=== PATIENT | female | born 1990 | race Caucasian/White ===

== ENCOUNTER 2016-12-08 16:22 | Emergency (ER) | payer OTHER ==
[~2016-12-08] VITALS: Ht 152.4 cm; Wt 81.8 kg
[~2016-12-08 16:22] MED LIST: CARAFATE 1GM1 G PO; CEPHALEXIN500 M1 PO; COUGH MED; DOXYCYCLINE 10100 MG PO; PREDNISONE20 MG PO; PROVENTIL0.09 MG/A1 IH; ZANTAC 7575 MG PO; ZITHROMAX 250M250 MG PO; ZITHROMAX Z PA250 MG PO; ZOFRAN 4MG T4 MG/TAB PO; ZOFRAN ODT4 MG PO
[2016-12-08 16:27] VITALS: TEMP 99.8
[2016-12-08 18:01] LABS: BASO # 0.1 (0.0-0.2); BASO % 0.8 % (0.0-2.0); EOS # 0.2 (0.0-0.7); EOS % 2.2 % (0-4.0); GRAN # 6.1 (1.4-6.5); GRAN % 71.9 % (42.2-75.2); HEMATOCRIT 40.1 % (37.0-47.0); HEMOGLOBIN 14.3 g/dl (12.5-16.0); LYMPH # 1.3 (1.2-3.4); LYMPH % 15.2 % (20.0-51.0); MEAN CELL VOLUME 90 fl (80.0-100.0); MEAN CORPUSCULAR HEMOGLOBIN 32 pg (27.0-31.0); MEAN CORPUSCULAR HGB CONC 36 g/dl (33.0-37.0); MEAN PLATELET VOLUME 9.9 fl (7.4-10.4); MONO # 0.8 (0.1-0.6); MONO % 9.4 % (1.7-9.3); PLATELET COUNT 283 K/mm3 (130-400); RED BLOOD COUNT 4.47 M/mm3 (4.10-5.30); REDCELL DISTRIBUTION WIDTH-CV 12.5 % (11.5-14.5); WHITE BLOOD COUNT 8.5 K/mm3 (4.8-10.8)
[2016-12-08 18:23] LABS: INFLUENZA B NEGATIVE
[2016-12-08 18:45] LABS: ADJUSTED CALCIUM 9.1 mg/dL (8.4-10.2); ALBUMIN 4.3 gm/dL (3.5-5.0); BILIRUBIN,TOTAL 0.7 mg/dL (0.0-1.0); C-REACTIVE PROTEIN 1.6 mg/dL (0.0-0.9); CALCIUM 9.3 mg/dL (8.4-10.2); CREATININE, serum 0.78 mg/dL (0.52-1.25); POTASSIUM 4.1 mmol/L (3.4-5.0); TOTAL PROTEIN 7.9 gm/dL (6.4-8.2)
[2016-12-08] MEDS ORDERED: PHENERGAN W/CO120 M1 PO (20:20)
[2016-12-08] MEDS ORDERED: DOXYCYCLINE 10100 MG PO (20:20)
[2016-12-08 21:15] VITALS: BP 119/72; PULSE 93
[2016-12-09] MEDS ORDERED: VENTOLIN0.09 MG IH (20:45)
== END 2016-12-08 21:15 | disposition home or self-care (01) ==
LOC: COL.ER 16:22
PROVIDERS: Emergency Medicine
DX: J40 Bronchitis, not specified as acute or chronic (principal); R51 Headache; F17.210 Nicotine dependence, cigarettes, uncomplicated
CPT/HCPCS: J1100; J1170; J1200; J2550; J3010; J7030

== ENCOUNTER 2016-12-09 20:39 | Emergency (ER) | payer OTHER ==
[~2016-12-09] VITALS: Ht 152.4 cm; Wt 81.8 kg
[~2016-12-09 20:39] MED LIST changes: +PHENERGAN W/CO120 M1 PO
[2016-12-09 20:41] VITALS: BP 118/66; TEMP 102.5
[2016-12-09] MEDS ORDERED: VENTOLIN0.09 MG IH (20:45)
[2016-12-09 21:49] VITALS: PULSE 121
== END 2016-12-09 22:02 | disposition home or self-care (01) ==
LOC: COL.ER 20:39
DX: J11.1 Influenza due to unidentified influenza virus with other respiratory manifestations (principal); F17.210 Nicotine dependence, cigarettes, uncomplicated

== ENCOUNTER 2016-12-12 09:01 | Emergency (ER) | payer OTHER ==
[~2016-12-12] VITALS: Ht 152.4 cm; Wt 81.7 kg
[~2016-12-12 09:01] MED LIST changes: +VENTOLIN0.09 MG IH
[2016-12-12 10:31] LABS: BASO % 0.4 % (0.0-2.0); EOS # 0.2 (0.0-0.7); EOS % 2.8 % (0-4.0); GRAN # 2.7 (1.4-6.5); GRAN % 50.3 % (42.2-75.2); HEMATOCRIT 39.2 % (37.0-47.0); HEMOGLOBIN 13.6 g/dl (12.5-16.0); LYMPH # 2.1 (1.2-3.4); LYMPH % 39.1 % (20.0-51.0); MEAN CELL VOLUME 92 fl (80.0-100.0); MEAN CORPUSCULAR HEMOGLOBIN 32 pg (27.0-31.0); MEAN CORPUSCULAR HGB CONC 35 g/dl (33.0-37.0); MEAN PLATELET VOLUME 9.8 fl (7.4-10.4); MONO # 0.4 (0.1-0.6); PLATELET COUNT 224 K/mm3 (130-400); RED BLOOD COUNT 4.27 M/mm3 (4.10-5.30); REDCELL DISTRIBUTION WIDTH-CV 12.8 % (11.5-14.5); WHITE BLOOD COUNT 5.3 K/mm3 (4.8-10.8)
[2016-12-12 10:34] VITALS: BP 118/71; TEMP 98.6
[2016-12-12 10:43] LABS: ADJUSTED CALCIUM 8.8 mg/dL (8.4-10.2); BILIRUBIN,TOTAL 0.5 mg/dL (0.0-1.0); CALCIUM 8.8 mg/dL (8.4-10.2); CREATININE, serum 0.79 mg/dL (0.52-1.25); POTASSIUM 3.4 mmol/L (3.4-5.0); TOTAL PROTEIN 7.3 gm/dL (6.4-8.2)
[2016-12-12] MEDS ORDERED: NORCO 325 MG-51 TAB PO (12:02)
[2016-12-12 12:08] VITALS: PULSE 90
== END 2016-12-12 12:15 | disposition home or self-care (01) ==
LOC: COL.ER 09:01
PROVIDERS: Physician Assistant
DX: B34.9 Viral infection, unspecified (principal); R51 Headache; J45.909 Unspecified asthma, uncomplicated; F17.210 Nicotine dependence, cigarettes, uncomplicated
CPT/HCPCS: J1170; J1885; J2405; J7030

== ENCOUNTER 2017-02-05 17:47 | Emergency (ER) | payer OTHER ==
[~2017-02-05] VITALS: Ht 152.4 cm; Wt 81.8 kg
[~2017-02-05 17:47] MED LIST changes: +NORCO 325 MG-51 TAB PO
[2017-02-05 17:48] VITALS: TEMP 98.6
[2017-02-05] MEDS ORDERED: ZANTAC 150150 MG (17:52)
[2017-02-05] MEDS ORDERED: ATARAX 25MG25 MG/TAB PO (18:46)
[2017-02-05] MEDS ORDERED: PREDNISONE20 MG PO (18:46)
[2017-02-05 19:04] VITALS: BP 128/75; PULSE 97
== END 2017-02-05 19:05 | disposition home or self-care (01) ==
LOC: COL.ER 17:47
DX: L23.9 Allergic contact dermatitis, unspecified cause (principal)
CPT/HCPCS: J7512

== ENCOUNTER 2017-03-11 14:53 | Emergency (ER) | payer OTHER ==
[~2017-03-11] VITALS: Ht 152.4 cm; Wt 84.1 kg
[~2017-03-11 14:53] MED LIST changes: +ATARAX 25MG25 MG/TAB PO; +ZANTAC 150150 MG
[2017-03-11 15:01] VITALS: BP 130/73; TEMP 98.6
[2017-03-11 16:30] VITALS: PULSE 91
== END 2017-03-11 16:30 | disposition home or self-care (01) ==
LOC: COL.ER 14:53
DX: M70.62 Trochanteric bursitis, left hip (principal); F17.210 Nicotine dependence, cigarettes, uncomplicated
CPT/HCPCS: J1885

== ENCOUNTER 2017-03-19 20:56 | Emergency (ER) | payer OTHER ==
[~2017-03-19] VITALS: Ht 152.4 cm; Wt 81.8 kg
[2017-03-19 21:08] VITALS: BP 143/87; TEMP 98.4
[2017-03-19] MEDS ORDERED: DOXYCYCLINE 10100 MG PO (23:12)
[2017-03-19 23:47] VITALS: PULSE 92
== END 2017-03-19 23:41 | disposition home or self-care (01) ==
LOC: COL.ER 20:56
DX: L03.031 Cellulitis of right toe (principal)

== ENCOUNTER 2017-05-14 21:25 | Emergency (ER) | payer OTHER ==
[~2017-05-14] VITALS: Ht 152.4 cm; Wt 81.8 kg
[2017-05-14 21:28] VITALS: TEMP 98
[2017-05-14] MEDS ORDERED: ZANTAC 7575 MG PO (21:30)
[2017-05-14 22:01] LABS: BASO # 0.1 (0.0-0.2); BASO % 0.5 % (0.0-2.0); EOS # 0.3 (0.0-0.7); EOS % 2.1 % (0-4.0); GRAN # 10.4 (1.4-6.5); GRAN % 69.6 % (42.2-75.2); HEMATOCRIT 38.2 % (37.0-47.0); HEMOGLOBIN 13.5 g/dl (12.5-16.0); LYMPH # 3.2 (1.2-3.4); LYMPH % 21.7 % (20.0-51.0); MEAN CELL VOLUME 89 fl (80.0-100.0); MEAN CORPUSCULAR HEMOGLOBIN 32 pg (27.0-31.0); MEAN CORPUSCULAR HGB CONC 35 g/dl (33.0-37.0); MEAN PLATELET VOLUME 9.6 fl (7.4-10.4); MONO # 0.8 (0.1-0.6); MONO % 5.3 % (1.7-9.3); PLATELET COUNT 284 K/mm3 (130-400); RED BLOOD COUNT 4.28 M/mm3 (4.10-5.30); REDCELL DISTRIBUTION WIDTH-CV 12.6 % (11.5-14.5)
[2017-05-14 22:06] LABS: PH 5 (5-8); SQUAMOUS EPITHELIAL 0-2 /hpf; URINE APPEARANCE Clear; URINE BACTERIA None Seen /hpf; URINE BILIRUBIN Negative (NEGATIVE); URINE BLOOD 1+ (NEGATIVE); URINE COLOR Yellow; URINE GLUCOSE Negative (NEGATIVE); URINE KETONE Negative (NEGATIVE); URINE RBC None Seen /hpf; URINE UROBILINOGEN Negative (NEGATIVE); URINE WBC 0-2 /hpf
[2017-05-14 22:14] LABS: ADJUSTED CALCIUM 8.9 mg/dL (8.4-10.2); ALBUMIN 4.1 gm/dL (3.5-5.0); BILIRUBIN,TOTAL 0.6 mg/dL (0.0-1.0); CREATININE, serum 0.72 mg/dL (0.52-1.25); POTASSIUM 3.7 mmol/L (3.4-5.0); TOTAL PROTEIN 7.7 gm/dL (6.4-8.2)
[2017-05-15] MEDS ORDERED: PHENERGAN 25 TA25 MG PO (01:22)
[2017-05-15] MEDS ORDERED: NORCO 325 MG-51 TAB PO (01:22)
[2017-05-15 01:29] VITALS: BP 115/70; PULSE 82
[2017-05-15] MEDS ORDERED: PROAIR HFA0.09 MG/AC (19:45)
[2017-05-15] MEDS ORDERED: EXCEDRIN TENSIO1 TAB PO (21:24)
== END 2017-05-15 01:33 | disposition home or self-care (01) ==
LOC: COL.ER 21:25
PROVIDERS: Emergency Medicine
DX: R10.11 Right upper quadrant pain (principal)
CPT/HCPCS: J1170; J1885; J7030; Q9967

== ENCOUNTER 2017-05-15 16:00 | Inpatient (IN) | payer OTHER ==
[~2017-05-15] VITALS: Ht 152.4 cm; Wt 88.6 kg
[~2017-05-15 16:00] MED LIST changes: +PHENERGAN 25 TA25 MG PO
[2017-05-15 16:57] LABS: BASO # 0.1 (0.0-0.2); BASO % 0.8 % (0.0-2.0); EOS # 0.3 (0.0-0.7); EOS % 2.8 % (0-4.0); GRAN # 6.3 (1.4-6.5); GRAN % 61.2 % (42.2-75.2); HEMATOCRIT 37.9 % (37.0-47.0); HEMOGLOBIN 13.6 g/dl (12.5-16.0); LYMPH # 2.9 (1.2-3.4); LYMPH % 28.2 % (20.0-51.0); MEAN CELL VOLUME 90 fl (80.0-100.0); MEAN CORPUSCULAR HEMOGLOBIN 32 pg (27.0-31.0); MEAN CORPUSCULAR HGB CONC 36 g/dl (33.0-37.0); MEAN PLATELET VOLUME 9.8 fl (7.4-10.4); MONO # 0.6 (0.1-0.6); MONO % 6.1 % (1.7-9.3); PLATELET COUNT 269 K/mm3 (130-400); RED BLOOD COUNT 4.21 M/mm3 (4.10-5.30); WHITE BLOOD COUNT 10.3 K/mm3 (4.8-10.8)
[2017-05-15 17:16] LABS: ADJUSTED CALCIUM 8.6 mg/dL (8.4-10.2); ALBUMIN 3.9 gm/dL (3.5-5.0); BILIRUBIN,TOTAL 0.7 mg/dL (0.0-1.0); C-REACTIVE PROTEIN 0.9 mg/dL (0.0-0.9); CALCIUM 8.5 mg/dL (8.4-10.2); CREATININE, serum 0.72 mg/dL (0.52-1.25); POTASSIUM 3.7 mmol/L (3.4-5.0); TOTAL PROTEIN 7.2 gm/dL (6.4-8.2)
[2017-05-15 18:59] VITALS: BP 120/77; PULSE 73; TEMP 97.7
[2017-05-15] MEDS ORDERED: PROAIR HFA0.09 MG/AC (19:45)
[2017-05-15 19:56] VITALS: BP 103/65; PULSE 75; TEMP 98.3
[2017-05-15] MEDS ORDERED: EXCEDRIN TENSIO1 TAB PO (21:24)
[2017-05-15 23:02] VITALS: BP 102/52; PULSE 68; TEMP 98.5
[2017-05-16 03:06] VITALS: BP 97/56; PULSE 81; TEMP 98.7
[2017-05-16 08:26] VITALS: BP 111/67; PULSE 86; TEMP 98.3
[2017-05-16 11:57] VITALS: BP 128/79; PULSE 94; TEMP 98.3
[2017-05-16 15:10] VITALS: BP 114/71; PULSE 84; TEMP 98.8
[2017-05-16 20:00] VITALS: BP 102/56; PULSE 66; TEMP 98.3
[2017-05-17 04:00] VITALS: BP 115/68; PULSE 78; TEMP 98.1
[2017-05-17 08:13] VITALS: BP 123/77; PULSE 77; TEMP 98.1
[2017-05-17 12:00] VITALS: BP 131/78; PULSE 77; TEMP 97.9
[2017-05-17 15:56] VITALS: BP 135/74; PULSE 72; TEMP 98.3
[2017-05-17 19:44] VITALS: BP 121/61; BP 122/47; PULSE 68; PULSE 93; TEMP 98.6
[2017-05-18 00:50] VITALS: BP 125/57; PULSE 73; TEMP 98.5
[2017-05-18 03:04] VITALS: BP 126/71; PULSE 50; TEMP 98.4
[2017-05-18 08:42] VITALS: BP 113/77; PULSE 70; TEMP 97.5
[2017-05-18 09:51] LABS: BASO # 0.1 (0.0-0.2); BASO % 0.6 % (0.0-2.0); EOS # 0.2 (0.0-0.7); EOS % 2.9 % (0-4.0); GRAN % 61.7 % (42.2-75.2); HEMATOCRIT 37.9 % (37.0-47.0); HEMOGLOBIN 13.4 g/dl (12.5-16.0); LYMPH # 2.3 (1.2-3.4); LYMPH % 28.5 % (20.0-51.0); MEAN CELL VOLUME 90 fl (80.0-100.0); MEAN CORPUSCULAR HEMOGLOBIN 32 pg (27.0-31.0); MEAN CORPUSCULAR HGB CONC 35 g/dl (33.0-37.0); MEAN PLATELET VOLUME 9.8 fl (7.4-10.4); MONO # 0.4 (0.1-0.6); MONO % 5.2 % (1.7-9.3); PLATELET COUNT 277 K/mm3 (130-400); RED BLOOD COUNT 4.22 M/mm3 (4.10-5.30); WHITE BLOOD COUNT 8.2 K/mm3 (4.8-10.8)
[2017-05-18 10:05] LABS: CREATININE, serum 0.74 mg/dL (0.52-1.25); POTASSIUM 3.5 mmol/L (3.4-5.0)
[2017-05-18 12:28] VITALS: BP 116/65; PULSE 66; TEMP 98.1
[2017-05-18 16:22] VITALS: BP 100/62; PULSE 67; TEMP 97.9
[2017-05-18 19:59] VITALS: BP 95/57; PULSE 66; TEMP 98.5
[2017-05-19 00:45] VITALS: BP 116/64; PULSE 64; TEMP 98.3
[2017-05-19 03:36] VITALS: BP 120/68; PULSE 72; TEMP 98.3
[2017-05-19 07:58] VITALS: BP 114/75; PULSE 75; TEMP 98.7
[2017-05-19 13:03] VITALS: BP 104/59; PULSE 80; TEMP 97.7
[2017-05-19 15:19] VITALS: BP 100/52; PULSE 61; TEMP 98.5
[2017-05-19] MEDS ORDERED: NORCO 325 MG-7.1 TAB PO (17:36)
[2017-05-19] MEDS ORDERED: PRIL40 PO (17:37)
[2017-05-19] MEDS ORDERED: CARAFATE S1 GM/10 ML PO (17:37)
== END 2017-05-19 18:25 | disposition home or self-care (01) | DRG 357 ==
LOC: COL.ER 16:00 → MEDICAL 18:19
PROVIDERS: Emergency Medicine; Physician Assistant; Surgery
PROC: 0DB78ZX Excision of Stomach, Pylorus, Via Natural or Artificial Opening Endoscopic, Diagnostic (ICD-10-PCS; 2017-05-15)
PROC: BF131ZZ Fluoroscopy of Gallbladder and Bile Ducts using Low Osmolar Contrast (ICD-10-PCS; 2017-05-19)
PROC: 0FT44ZZ Resection of Gallbladder, Percutaneous Endoscopic Approach (ICD-10-PCS; principal; 2017-05-19 11:00)
DX: K25.9 Gastric ulcer, unspecified as acute or chronic, without hemorrhage or perforation (principal); K80.10 Calculus of gallbladder with chronic cholecystitis without obstruction; J20.9 Acute bronchitis, unspecified; T39.1X5A Adverse effect of 4-Aminophenol derivatives, initial encounter; F17.210 Nicotine dependence, cigarettes, uncomplicated
CPT/HCPCS: 99223-AI; 99232-AI; 99233-AI; 99239; A9537; C9113; G0378; J1100; J1170; J1885; J2060; J2250; J2405; J2550; J2704; J3010; J7030; J7120; Q9967

== ENCOUNTER 2017-09-02 20:11 | Emergency (ER) | payer OTHER ==
[~2017-09-02] VITALS: Ht 152.4 cm; Wt 80.0 kg
[~2017-09-02 20:11] MED LIST changes: +CARAFATE S1 GM/10 ML PO; +EXCEDRIN TENSIO1 TAB PO; +NORCO 325 MG-7.1 TAB PO; +PRIL40 PO; +PROAIR HFA0.09 MG/AC
[2017-09-02 20:14] VITALS: TEMP 98.5
[2017-09-02] MEDS ORDERED: CRUTCHES MC (21:19)
[2017-09-02 21:30] VITALS: BP 129/77; PULSE 78
== END 2017-09-02 21:30 | disposition home or self-care (01) ==
LOC: COL.ER 20:11
DX: S80.12XA Contusion of left lower leg, initial encounter (principal); F17.210 Nicotine dependence, cigarettes, uncomplicated; V80.010A Animal-rider injured by fall from or being thrown from horse in noncollision accident, initial encounter
CPT/HCPCS: J1885

== ENCOUNTER 2017-12-18 13:16 | Emergency (ER) | payer SELFPAY ==
[~2017-12-18] VITALS: Ht 152.4 cm; Wt 75.0 kg
[~2017-12-18 13:16] MED LIST changes: +CRUTCHES MC
[2017-12-18 13:37] VITALS: BP 118/69; TEMP 98.9
[2017-12-18 16:22] LABS: COLLECTION METHOD CLEAN CATCH
[2017-12-18 16:29] LABS: MUCOUS Present /lpf; PH 5 (5-8); SQUAMOUS EPITHELIAL 0-2 /hpf; URINE APPEARANCE Clear; URINE BACTERIA Rare /hpf; URINE BILIRUBIN Negative (NEGATIVE); URINE BLOOD Negative (NEGATIVE); URINE COLOR Yellow; URINE GLUCOSE Negative (NEGATIVE); URINE KETONE Negative (NEGATIVE); URINE LEUKOCYTE ESTERASE Negative (NEGATIVE); URINE NITRATE Negative (NEGATIVE); URINE PROTEIN(semi-quant) Negative (NEGATIVE); URINE RBC 0-2 /hpf; URINE UROBILINOGEN Negative (NEGATIVE)
[2017-12-18 20:30] VITALS: PULSE 76
== END 2017-12-18 20:31 | disposition home or self-care (01) ==
LOC: COL.ER 13:16
PROVIDERS: Nurse Practitioner
DX: O26.891 Other specified pregnancy related conditions, first trimester (principal); R10.32 Left lower quadrant pain; O99.331 Smoking (tobacco) complicating pregnancy, first trimester; F17.210 Nicotine dependence, cigarettes, uncomplicated; Z3A.01 Less than 8 weeks gestation of pregnancy; Z90.49 Acquired absence of other specified parts of digestive tract

== ENCOUNTER 2017-12-23 21:02 | Emergency (ER) | payer SELFPAY ==
[~2017-12-23] VITALS: Ht 152.4 cm; Wt 76.4 kg
[2017-12-23 21:07] VITALS: BP 118/65; PULSE 90; TEMP 98.9
[2017-12-24 00:05] LABS: BASO # 0.1 (0.0-0.2); BASO % 0.5 % (0.0-2.0); EOS # 0.3 (0.0-0.7); EOS % 1.7 % (0-4.0); GRAN # 11.3 (1.4-6.5); GRAN % 67.3 % (42.2-75.2); HEMATOCRIT 39.1 % (37.0-47.0); HEMOGLOBIN 13.5 g/dl (12.5-16.0); LYMPH # 4.1 (1.2-3.4); LYMPH % 24.7 % (20.0-51.0); MEAN CELL VOLUME 92 fl (80.0-100.0); MEAN CORPUSCULAR HEMOGLOBIN 32 pg (27.0-31.0); MEAN CORPUSCULAR HGB CONC 35 g/dl (33.0-37.0); MEAN PLATELET VOLUME 9.4 fl (7.4-10.4); MONO # 0.8 (0.1-0.6); MONO % 4.9 % (1.7-9.3); PLATELET COUNT 279 K/mm3 (130-400); RED BLOOD COUNT 4.25 M/mm3 (4.10-5.30); REDCELL DISTRIBUTION WIDTH-CV 12.3 % (11.5-14.5)
[2017-12-24 00:50] LABS: COLLECTION METHOD CLEAN CATCH
[2017-12-24 00:57] LABS: PH 7 (5-8); SQUAMOUS EPITHELIAL None Seen /hpf; URINE APPEARANCE Clear; URINE BACTERIA None Seen /hpf; URINE BILIRUBIN Negative (NEGATIVE); URINE BLOOD Negative (NEGATIVE); URINE COLOR Straw; URINE GLUCOSE Negative (NEGATIVE); URINE KETONE Negative (NEGATIVE); URINE LEUKOCYTE ESTERASE Negative (NEGATIVE); URINE NITRATE Negative (NEGATIVE); URINE PROTEIN(semi-quant) Negative (NEGATIVE); URINE RBC None Seen /hpf; URINE UROBILINOGEN Negative (NEGATIVE)
== END 2017-12-24 03:25 | disposition home or self-care (01) ==
LOC: COL.ER 21:02
PROVIDERS: Emergency Medicine
DX: O26.891 Other specified pregnancy related conditions, first trimester (principal); R10.32 Left lower quadrant pain; Z3A.00 Weeks of gestation of pregnancy not specified

== ENCOUNTER 2018-02-07 18:14 | Emergency (ER) | payer MEDICAID ==
[~2018-02-07] VITALS: Ht 152.4 cm; Wt 75.9 kg
[2018-02-07 18:15] VITALS: BP 121/65; PULSE 89; TEMP 98.8
[2018-02-07 19:34] LABS: COLLECTION METHOD CLEAN CATCH
[2018-02-07 19:40] LABS: PH 6 (5-8); SQUAMOUS EPITHELIAL 0-2 /hpf; URINE APPEARANCE Clear; URINE BACTERIA None Seen /hpf; URINE BILIRUBIN Negative (NEGATIVE); URINE BLOOD Negative (NEGATIVE); URINE COLOR Straw; URINE GLUCOSE Negative (NEGATIVE); URINE KETONE Negative (NEGATIVE); URINE LEUKOCYTE ESTERASE Negative (NEGATIVE); URINE NITRATE Negative (NEGATIVE); URINE PROTEIN(semi-quant) Negative (NEGATIVE); URINE RBC 0-2 /hpf; URINE UROBILINOGEN Negative (NEGATIVE)
== END 2018-02-07 20:57 | disposition home or self-care (01) ==
LOC: COL.ER 18:14
PROVIDERS: Physician Assistant
DX: O26.891 Other specified pregnancy related conditions, first trimester (principal); R10.30 Lower abdominal pain, unspecified; O99.331 Smoking (tobacco) complicating pregnancy, first trimester; Z90.49 Acquired absence of other specified parts of digestive tract; Z3A.12 12 weeks gestation of pregnancy

== ENCOUNTER 2018-03-04 17:36 | Emergency (ER) | payer MEDICAID ==
[~2018-03-04] VITALS: Ht 152.4 cm; Wt 74.1 kg
[2018-03-04 18:02] VITALS: BP 119/57; TEMP 98.9
[2018-03-04] MEDS ORDERED: AMOXICILLIN 8751 TAB PO (18:09)
[2018-03-04 18:46] VITALS: PULSE 82
== END 2018-03-04 18:48 | disposition home or self-care (01) ==
LOC: COL.ER 17:36
DX: J02.9 Acute pharyngitis, unspecified (principal); J45.909 Unspecified asthma, uncomplicated; F17.210 Nicotine dependence, cigarettes, uncomplicated

== ENCOUNTER 2019-02-25 19:15 | Emergency (ER) | payer MEDICAID ==
[~2019-02-25] VITALS: Ht 152.4 cm; Wt 80.0 kg
[~2019-02-25 19:15] MED LIST changes: +AMOXICILLIN 8751 TAB PO; +IBU800 M1 PO; +PERCOCET 325 MG1 TA2 PO; +PRENATAL; +PROTONIX20 MG PO
[2019-02-25 19:40] VITALS: TEMP 98.8
[2019-02-25] MEDS ORDERED: ZANTAC 7575 MG PO (21:39)
[2019-02-25] MEDS ORDERED: PREDNISONE20 MG PO (21:40)
[2019-02-25] MEDS ORDERED: PROAIR HFA0.09 MG/AC IH (21:40)
[2019-02-25] MEDS ORDERED: TESSALON P100 MG/CAP PO (21:40)
[2019-02-25] MEDS ORDERED: TUSS PO (22:41)
[2019-02-25] MEDS ORDERED: ZITHROMAX Z PA250 MG PO (22:41)
[2019-02-25 23:03] VITALS: BP 141/69; PULSE 90
[2019-02-25] MEDS ORDERED: NEB MC (23:08)
[2019-02-25] MEDS ORDERED: ALBUTEROL0.83 MG/ML IH (23:08)
== END 2019-02-25 23:07 | disposition home or self-care (01) ==
LOC: COL.ER 19:15
DX: J40 Bronchitis, not specified as acute or chronic (principal); Z79.51 Long term (current) use of inhaled steroids; Z90.49 Acquired absence of other specified parts of digestive tract; Z90.710 Acquired absence of both cervix and uterus

== ENCOUNTER 2019-03-20 10:19 | Emergency (ER) | payer SELFPAY ==
[~2019-03-20] VITALS: Ht 152.4 cm; Wt 80.0 kg
[~2019-03-20 10:19] MED LIST changes: +ALBUTEROL0.83 MG/ML IH; +NEB MC; +PROAIR HFA0.09 MG/AC IH; +TESSALON P100 MG/CAP PO; +TUSS PO
[2019-03-20 10:50] LABS: BASO % 0.4 % (0.0-2.0); EOS # 0.2 (0.0-0.7); EOS % 2.3 % (0-4.0); GRAN # 5.7 (1.4-6.5); GRAN % 71.4 % (42.2-75.2); HEMATOCRIT 39.4 % (37.0-47.0); LYMPH # 1.5 (1.2-3.4); LYMPH % 19.3 % (20.0-51.0); MEAN CELL VOLUME 90 fl (80.0-100.0); MEAN CORPUSCULAR HEMOGLOBIN 32 pg (27.0-31.0); MEAN CORPUSCULAR HGB CONC 36 g/dl (33.0-37.0); MEAN PLATELET VOLUME 9.5 fl (7.4-10.4); MONO # 0.5 (0.1-0.6); MONO % 6.1 % (1.7-9.3); PLATELET COUNT 293 K/mm3 (130-400); RED BLOOD COUNT 4.37 M/mm3 (4.10-5.30); REDCELL DISTRIBUTION WIDTH-CV 12.2 % (11.5-14.5)
[2019-03-20 10:56] LABS: ALBUMIN 3.9 gm/dL (3.5-5.0); BILIRUBIN,TOTAL 0.4 mg/dL (0.0-1.0); CREATININE, serum 0.73 (0.52-1.25); POTASSIUM 3.9 mmol/L (3.4-5.0); TOTAL PROTEIN 7.6 gm/dL (6.4-8.2)
[2019-03-20 11:54] LABS: COLLECTION METHOD CLEAN CATCH
[2019-03-20 12:00] LABS: MUCOUS Present /lpf; PH 5 (5-8); SQUAMOUS EPITHELIAL None Seen /hpf; URINE APPEARANCE Clear; URINE BACTERIA None Seen /hpf; URINE BILIRUBIN Negative (NEGATIVE); URINE BLOOD Negative (NEGATIVE); URINE COLOR Yellow; URINE GLUCOSE Negative (NEGATIVE); URINE KETONE Negative (NEGATIVE); URINE LEUKOCYTE ESTERASE Negative (NEGATIVE); URINE NITRATE Negative (NEGATIVE); URINE PROTEIN(semi-quant) Negative (NEGATIVE); URINE RBC None Seen /hpf; URINE UROBILINOGEN Negative (NEGATIVE); URINE WBC 0-2 /hpf
[2019-03-20] MEDS ORDERED: PROTONIX 40MG T40 MG PO (13:48)
[2019-03-20 14:22] VITALS: BP 107/65; PULSE 103; TEMP 98.9
== END 2019-03-20 14:25 | disposition home or self-care (01) ==
LOC: COL.ER 10:19
PROVIDERS: Nurse Practitioner Primary Care
DX: K25.9 Gastric ulcer, unspecified as acute or chronic, without hemorrhage or perforation (principal); F17.210 Nicotine dependence, cigarettes, uncomplicated; Z90.49 Acquired absence of other specified parts of digestive tract; Z90.710 Acquired absence of both cervix and uterus
CPT/HCPCS: C9113; J2270; J2405; Q9967

== ENCOUNTER 2019-04-05 12:59 | Day surgery (SDC) | payer SELFPAY ==
[~2019-04-05] VITALS: Ht 152.4 cm; Wt 78.0 kg
[~2019-04-05 12:59] MED LIST changes: +PROTONIX 40MG T40 MG PO; +ZANTAC 150MG T150 MG PO
[2019-04-05] MEDS ORDERED: ALBUTEROL0.83 MG/ML IH (13:12)
[2019-04-05 13:42] VITALS: BP 110/81; PULSE 90; TEMP 97.7
[2019-04-05 14:30] VITALS: BP 111/70; PULSE 78; TEMP 98
--- NOTE | 2019-04-05 14:30 | NUR ---
PATIENT ARRIVES VIA CART FROM OR TO BAY 2. STEADY AMBULATION TO CHAIR. VS STARTED. SPRITE [employer] CRACKERS GIVEN REQUESTED.
[2019-04-05 14:45] VITALS: BP 116/72; PULSE 80
[2019-04-05 15:15] VITALS: BP 113/78; PULSE 80; TEMP 98
--- NOTE | 2019-04-05 15:47 | NUR ---
PATIENT AND SPOUSE GIVEN DISCHARGE INSTRUCTIONS, VERBALIZED UNDERSTANDING. DECLINED WHEELCHAIR, AMBULATED WITH NURSE ESCORT TO PERSONAL CAR.
== END 2019-04-05 15:40 | disposition home or self-care (01) ==
LOC: SDCO 12:59
DX: R19.7 Diarrhea, unspecified (principal); R11.2 Nausea with vomiting, unspecified; Z87.11 Personal history of peptic ulcer disease; Z88.8 Allergy status to other drugs, medicaments and biological substances; F32.9 Major depressive disorder, single episode, unspecified; J45.909 Unspecified asthma, uncomplicated; Z83.79 Family history of other diseases of the digestive system; Z90.710 Acquired absence of both cervix and uterus; Z90.49 Acquired absence of other specified parts of digestive tract; F17.210 Nicotine dependence, cigarettes, uncomplicated; K21.9 Gastro-esophageal reflux disease without esophagitis
CPT/HCPCS: J2704; J7120

== ENCOUNTER → 2019-05-14 | Outpatient (CLI) | payer MEDICAID | LOC: COL.RAD 06:41 | DX: R11.2 Nausea with vomiting, unspecified (principal); R19.7 Diarrhea, unspecified; M54.9 Dorsalgia, unspecified; R10.9 Unspecified abdominal pain | CPT/HCPCS: A9541 ==

== ENCOUNTER 2019-05-21 17:20 | Emergency (ER) | payer MEDICAID ==
[~2019-05-21] VITALS: Ht 152.4 cm; Wt 75.9 kg
[2019-05-21 18:09] VITALS: BP 123/76; TEMP 98.6
[2019-05-21 19:03] LABS: BASO # 0.1 (0.0-0.2); BASO % 0.6 % (0.0-2.0); EOS # 0.2 (0.0-0.7); EOS % 2.1 % (0-4.0); GRAN # 6.9 (1.4-6.5); GRAN % 67.3 % (42.2-75.2); HEMOGLOBIN 12.9 g/dl (12.5-16.0); LYMPH # 2.4 (1.2-3.4); LYMPH % 23.8 % (20.0-51.0); MEAN CELL VOLUME 89 fl (80.0-100.0); MEAN CORPUSCULAR HEMOGLOBIN 33 pg (27.0-31.0); MEAN CORPUSCULAR HGB CONC 37 g/dl (33.0-37.0); MEAN PLATELET VOLUME 10.4 fl (7.4-10.4); MONO # 0.6 (0.1-0.6); MONO % 5.8 % (1.7-9.3); PLATELET COUNT 267 K/mm3 (130-400); RED BLOOD COUNT 3.97 M/mm3 (4.10-5.30)
[2019-05-21 19:12] LABS: HEMATOCRIT 35.3 % (37.0-47.0)
[2019-05-21 19:15] LABS: ALBUMIN 3.6 gm/dL (3.5-5.0); BILIRUBIN,TOTAL 0.2 mg/dL (0.0-1.0); CALCIUM 8.9 mg/dL (8.4-10.2); CREATININE, serum 0.63 (0.52-1.25); POTASSIUM 3.4 mmol/L (3.4-5.0); TOTAL PROTEIN 6.9 gm/dL (6.4-8.2)
[2019-05-21 21:17] VITALS: PULSE 67
== END 2019-05-21 21:27 | disposition home or self-care (01) ==
LOC: COL.ER 17:20
PROVIDERS: Emergency Medicine
DX: G43.909 Migraine, unspecified, not intractable, without status migrainosus (principal); Z90.49 Acquired absence of other specified parts of digestive tract; Z90.710 Acquired absence of both cervix and uterus; Z88.6 Allergy status to analgesic agent; Z88.3 Allergy status to other anti-infective agents
CPT/HCPCS: J1200; J1885; J2765; J3010; J7030

== ENCOUNTER 2019-07-16 17:31 | Emergency (ER) | payer MEDICAID ==
[~2019-07-16] VITALS: Ht 152.4 cm; Wt 75.9 kg
[2019-07-16 18:12] VITALS: BP 113/77; TEMP 98.2
[2019-07-16] MEDS ORDERED: PREDNISONE20 MG PO (19:08)
[2019-07-16] MEDS ORDERED: ZITHROMAX Z PA250 MG PO (19:08)
[2019-07-16 20:00] VITALS: PULSE 83
== END 2019-07-16 20:00 | disposition home or self-care (01) ==
LOC: COL.ER 17:31
DX: J40 Bronchitis, not specified as acute or chronic (principal); F17.210 Nicotine dependence, cigarettes, uncomplicated
CPT/HCPCS: J7512

== ENCOUNTER 2020-04-25 15:29 | Emergency (ER) | payer MEDICAID ==
[~2020-04-25] VITALS: Ht 152.4 cm; Wt 81.8 kg
[2020-04-25 17:23] VITALS: BP 136/88; PULSE 81; TEMP 98.4
[2020-04-25] MEDS ORDERED: AMOXICILLIN 8751 TAB PO (17:24)
== END 2020-04-25 18:06 | disposition home or self-care (01) ==
LOC: COL.ER 15:29
PROVIDERS: Emergency Medicine
DX: R51 Headache (principal); R05 Cough; Z20.828 Contact with and (suspected) exposure to other viral communicable diseases
CPT/HCPCS: J1100; J1200; J2765; J7030

== ENCOUNTER 2020-11-02 11:14 | Emergency (ER) | payer MEDICAID ==
[~2020-11-02] VITALS: Ht 152.4 cm; Wt 75.0 kg
[2020-11-02 11:39] LABS: COLLECTION METHOD CLEAN CATCH
[2020-11-02 11:47] LABS: MUCOUS Present /lpf; PH 5 (5-8); SQUAMOUS EPITHELIAL 0-2 /hpf; URINE APPEARANCE Hazy; URINE BACTERIA Rare /hpf; URINE BILIRUBIN Negative (NEGATIVE); URINE BLOOD 1+ (NEGATIVE); URINE COLOR Yellow; URINE GLUCOSE Negative (NEGATIVE); URINE KETONE Negative (NEGATIVE); URINE LEUKOCYTE ESTERASE 2+ (NEGATIVE); URINE NITRATE Negative (NEGATIVE); URINE PROTEIN(semi-quant) Negative (NEGATIVE); URINE UROBILINOGEN Negative (NEGATIVE)
[2020-11-02 12:13] LABS: BASO # 0.1 (0.0-0.2); BASO % 0.6 % (0.0-2.0); EOS # 0.2 (0.0-0.7); EOS % 1.7 % (0-4.0); GRAN # 7.3 (1.4-6.5); GRAN % 64.8 % (42.2-75.2); HEMATOCRIT 42.6 % (37.0-47.0); HEMOGLOBIN 14.9 g/dl (12.5-16.0); LYMPH % 26.9 % (20.0-51.0); MEAN CELL VOLUME 92 fl (80.0-100.0); MEAN CORPUSCULAR HEMOGLOBIN 32 pg (27.0-31.0); MEAN CORPUSCULAR HGB CONC 35 g/dl (33.0-37.0); MEAN PLATELET VOLUME 10.2 fl (7.4-10.4); MONO # 0.5 (0.1-0.6); MONO % 4.8 % (1.7-9.3); PLATELET COUNT 321 K/mm3 (130-400); RED BLOOD COUNT 4.61 M/mm3 (4.10-5.30); REDCELL DISTRIBUTION WIDTH-CV 12.3 % (11.5-14.5)
[2020-11-02] MEDS ORDERED: OMNICEF 300MG300 MG PO (12:20)
[2020-11-02] MEDS ORDERED: ZOFRAN ODT4 MG PO (12:21)
[2020-11-02 12:37] LABS: ALANINE AMINOTRANSFERASE 30 U/L (4-34); ALBUMIN 4.4 gm/dL (3.5-5.0); ALKALINE PHOSPHATASE 55 U/L (50-136); ANION GAP 13 mmol/L (7-16); AST,SGOT 30 U/L (15-37); BILIRUBIN,TOTAL 0.4 mg/dL (0.0-1.0); BLOOD UREA NITROGEN 11 mg/dL (7-17); CALCIUM 9.1 mg/dL (8.4-10.2); CARBON DIOXIDE 21 mmol/L (22-30); CHLORIDE 103 mmol/L (98-107); CREATININE, serum 0.84 (0.52-1.25); GLUCOSE 91 mg/dL (74-106); POTASSIUM 3.9 mmol/L (3.4-5.0); SODIUM 137 mmol/L (137-145); TOTAL PROTEIN 7.6 gm/dL (6.4-8.2)
[2020-11-02 12:49] LABS: C-REACTIVE PROTEIN < 0.5 mg/dL (0.0-0.9)
[2020-11-02 14:02] VITALS: BP 116/73; PULSE 87; TEMP 97.8
== END 2020-11-02 14:03 | disposition home or self-care (01) ==
LOC: COL.ER 11:14
PROVIDERS: Family Medicine; Physician Assistant
DX: N12 Tubulo-interstitial nephritis, not specified as acute or chronic (principal); F17.210 Nicotine dependence, cigarettes, uncomplicated; Z90.49 Acquired absence of other specified parts of digestive tract; Z32.02 Encounter for pregnancy test, result negative; Z88.6 Allergy status to analgesic agent; Z88.8 Allergy status to other drugs, medicaments and biological substances; Z79.2 Long term (current) use of antibiotics
CPT/HCPCS: J0696; J1885; J2550; J7030

== ENCOUNTER 2020-12-15 10:41 | Emergency (ER) | payer MEDICAID ==
[~2020-12-15] VITALS: Ht 152.4 cm; Wt 77.3 kg
[~2020-12-15 10:41] MED LIST changes: +OMNICEF 300MG300 MG PO
[2020-12-15 11:00] VITALS: TEMP 98.2
[2020-12-15] MEDS ORDERED: PREDNISONE20 MG PO (13:01)
[2020-12-15 13:19] VITALS: BP 116/69; PULSE 92
== END 2020-12-15 13:19 | disposition home or self-care (01) ==
LOC: COL.ER 10:41
DX: J06.9 Acute upper respiratory infection, unspecified (principal); J45.909 Unspecified asthma, uncomplicated; F17.210 Nicotine dependence, cigarettes, uncomplicated; Z20.822 Contact with and (suspected) exposure to COVID-19; Z88.8 Allergy status to other drugs, medicaments and biological substances; Z88.6 Allergy status to analgesic agent
CPT/HCPCS: J7512

== ENCOUNTER 2021-03-06 13:46 | Emergency (ER) | payer MEDICAID ==
[~2021-03-06] VITALS: Ht 152.4 cm; Wt 77.3 kg
[2021-03-06 13:54] VITALS: TEMP 98.3
[2021-03-06 14:50] VITALS: BP 119/71; PULSE 88
== END 2021-03-06 14:53 | disposition home or self-care (01) ==
LOC: COL.ER 13:46
DX: G56.22 Lesion of ulnar nerve, left upper limb (principal); Z90.49 Acquired absence of other specified parts of digestive tract; Z90.710 Acquired absence of both cervix and uterus; Z88.6 Allergy status to analgesic agent; Z88.8 Allergy status to other drugs, medicaments and biological substances

== ENCOUNTER 2022-01-31 20:57 | Emergency (ER) | payer MEDICAID ==
[2022-01-31 21:03] VITALS: TEMP 98.5
[2022-01-31] MEDS ORDERED: LYRICA 100MG C100 M1 PO (21:11)
[2022-01-31] MEDS ORDERED: FASTIN30 MG PO (21:11)
[2022-01-31] MEDS ORDERED: CELEBREX 1100 MG/CAP PO (21:12)
[2022-01-31] MEDS ORDERED: TRICOR145 MG PO (21:12)
[2022-01-31] MEDS ORDERED: LYRICA 50MG CAP50 MG PO (21:13)
[2022-01-31] MEDS ORDERED: TOPAMAX 25MG25 M1 PO (21:14)
[2022-01-31] MEDS ORDERED: ROBAXIN 50500 MG/TAB PO (21:14)
[2022-01-31] MEDS ORDERED: PAMELOR 25MG25 MG PO (21:14)
[2022-01-31] MEDS ORDERED: PERCOCET 325 MG1 TAB PO ×2 (21:15)
[2022-01-31] MEDS ORDERED: ALBUTEROL0.83 MG/ML IH (21:16)
[2022-01-31 21:22] LABS: BASO # 0.1 K/mm3 (0.0-0.2); BASO % 0.8 % (0.0-2.0); EOS # 0.3 K/mm3 (0.0-0.7); EOS % 3.2 % (0.0-4.0); GRAN # 5.7 K/mm3 (1.4-6.5); GRAN % 59.9 % (42.2-75.2); HEMATOCRIT 42.2 % (37.0-47.0); HEMOGLOBIN 14.8 g/dl (12.5-16.0); LYMPH # 2.8 K/mm3 (1.2-3.4); LYMPH % 29.6 % (20.0-51.0); MEAN CELL VOLUME 91 fl (80.0-100.0); MEAN CORPUSCULAR HEMOGLOBIN 32 pg (27-31); MEAN CORPUSCULAR HGB CONC 35 g/dl (33.0-37.0); MEAN PLATELET VOLUME 10.1 fl (7.4-10.4); MONO # 0.5 K/mm3 (0.1-0.6); MONO % 5.7 % (1.7-9.3); PLATELET COUNT 286 K/mm3 (130-400); RED BLOOD COUNT 4.64 M/mm3 (4.10-5.30); REDCELL DISTRIBUTION WIDTH-CV 12.6 % (11.5-14.5)
[2022-01-31 22:01] LABS: ALANINE AMINOTRANSFERASE 57 U/L (0-55); ALBUMIN 4.1 gm/dL (3.5-5.0); ALKALINE PHOSPHATASE 38 U/L (40-150); ANION GAP 14 mmol/L (7-16); AST,SGOT 34 U/L (5-34); BILIRUBIN,TOTAL 0.2 mg/dL (0.2-1.2); BLOOD UREA NITROGEN 8 mg/dL (7-19); CARBON DIOXIDE 19 mmol/L (22-29); CHLORIDE 105 mmol/L (98-107); CREATININE, serum 1.01 mg/dL (0.57-1.11); GLUCOSE 100 mg/dL (70-99); SODIUM 138 mmol/L (136-145); TOTAL PROTEIN 7.6 gm/dL (6.2-8.1)
[2022-01-31 22:08] LABS: TROPONIN-I < 0.010 ng/mL (0.00-0.033)
[2022-02-01 01:40] VITALS: BP 112/74; PULSE 82
== END 2022-02-01 01:40 | disposition home or self-care (01) ==
LOC: COL.ER 20:57
PROVIDERS: Emergency Medicine
DX: R07.2 Precordial pain (principal); R79.1 Abnormal coagulation profile
CPT/HCPCS: J2270; J2405; Q9967

== ENCOUNTER 2023-01-31 07:38 | Outpatient (CLI) | payer MEDICAID ==
[~2023-01-31] VITALS: Ht 152.4 cm; Wt 89.1 kg
[~2023-01-31 07:38] MED LIST changes: +CELEBREX 1100 MG/CAP PO; +FASTIN30 MG PO; +LYRICA 100MG C100 M1 PO; +LYRICA 50MG CAP50 MG PO; +PAMELOR 25MG25 MG PO; +PERCOCET 325 MG1 TAB PO; +ROBAXIN 50500 MG/TAB PO; +TOPAMAX 25MG25 M1 PO; +TRICOR145 MG PO
[2023-01-31 08:19] VITALS: BP 125/73; PULSE 80; TEMP 98.5
[2023-01-31] MEDS ORDERED: ASPIRIN 81M81 MG/TA2 PO (08:19)
[2023-01-31] MEDS ORDERED: PROAMATINE 5MG T5 MG PO (10:28)
[2023-01-31 10:45] VITALS: BP 109/66; PULSE 82
[2023-01-31 11:00] VITALS: BP 114/62; PULSE 84
--- NOTE | 2023-01-31 11:21 | NUR ---
Pt discharged at approx 1120. Pt tolerated post-op very well and was free from complaints or concerns at time of discharge. Pt's VS remained within normal limits pre and post operatively. [facility] to [facility] her ride at the front entrance. She tolerated PO fluids during post-op and her dressing remained clean, dry, and intact upon discharge. She left with a prescription from Dr. Vieira for a blood pressure cuff to use at home and all of her [employer] devices that connect to her new loop recorder. pt verbalized understanding of discharge instructions.
== END 2023-01-31 11:20 | disposition home or self-care (01) ==
LOC: COL.CAR 07:38
DX: R55 Syncope and collapse (principal); R42 Dizziness and giddiness; R06.09 Other forms of dyspnea; R07.9 Chest pain, unspecified; E78.1 Pure hyperglyceridemia; I65.23 Occlusion and stenosis of bilateral carotid arteries; E66.01 Morbid (severe) obesity due to excess calories; F17.210 Nicotine dependence, cigarettes, uncomplicated; Z68.39 Body mass index [BMI] 39.0-39.9, adult
CPT/HCPCS: 27886; C1764

== ENCOUNTER 2024-08-05 08:32 | Inpatient (IN) | payer MEDICAID ==
[2024-08-05] VITALS (350 sets, daily range): BP systolic 106–129; BP diastolic 56–63; PULSE 83–90; TEMP 98.3–98.4; O2SAT 80–100
[~2024-08-05] VITALS: Ht 152.4 cm; Wt 95.9 kg
[~2024-08-05 08:32] MED LIST changes: +ASPIRIN 81M81 MG/TA2 PO; +PROAMATINE 5MG T5 MG PO
[2024-08-05] MEDS ORDERED: methylPREDNISolone Sod Succ 125 MG/2 ML VIAL IV ONE (09:15)
[2024-08-05] MEDS ORDERED: Albuterol/Ipratropium 3 MG-0.5 MG/3 ML Neb Soln IH SCH ×4 (09:15→15:00)
[2024-08-05 09:23] LABS: HEMATOCRIT 39.7 % (37.0-47.0); HEMOGLOBIN 13.7 g/dl (12.5-16.0); MEAN CELL VOLUME 93 fl (80.0-100.0); MEAN CORPUSCULAR HEMOGLOBIN 32 pg (27-31); MEAN CORPUSCULAR HGB CONC 35 g/dl (33.0-37.0); MEAN PLATELET VOLUME 9.7 fl (7.4-10.4); PLATELET COUNT 353 K/mm3 (130-400); RED BLOOD COUNT 4.29 M/mm3 (4.10-5.30); REDCELL DISTRIBUTION WIDTH-CV 12.5 % (11.5-14.5)
[2024-08-05 09:37] LABS: ALBUMIN 3.8 g/dL (3.5-5.0); BILIRUBIN,TOTAL 0.3 mg/dL (0.2-1.2); CALCIUM 8.7 mg/dL (8.4-10.2); CREATININE, serum 0.79 mg/dL (0.57-1.11); POTASSIUM 3.7 mEq/L (3.5-4.5); TOTAL PROTEIN 6.9 g/dl (6.2-8.1)
[2024-08-05] MEDS ORDERED: Ondansetron 4 MG/2 ML VIAL IV ONE (09:45)
[2024-08-05 10:16] LABS: LYMPHOCYTE 24 % (20.0-51.0); NEUTROPHILS 72 % (42.0-75.2)
[2024-08-05 10:17] LABS: PLATELET ESTIMATE NORMAL (NORMAL)
[2024-08-05 12:24] LABS: COLLECTION METHOD CLEAN CATCH
[2024-08-05 12:28] LABS: PH 7.5 (5.0-8.5); URINE APPEARANCE TURBID (CLEAR/HAZY); URINE BLOOD NEGATIVE (NEGATIVE); URINE COLOR YELLOW (YELLOW); URINE GLUCOSE NEGATIVE (NEGATIVE); URINE KETONE NEGATIVE (NEGATIVE); URINE NITRATE NEGATIVE (NEGATIVE); URINE PROTEIN(semi-quant) NEGATIVE (NEGATIVE)
[2024-08-05] MEDS ORDERED: *Potassium Replacement Protocol MC SCH (13:00)
[2024-08-05] MEDS ORDERED: LEXAPRO20 MG PO (13:10)
[2024-08-05] MEDS ORDERED: PREDNISONE20 MG PO (13:10)
[2024-08-05] MEDS ORDERED: TOPAMAX 100MG100 M1 PO (13:10)
[2024-08-05] MEDS ORDERED: PROAIR HFA0.09 MG/AC IH (13:10)
[2024-08-05] MEDS ORDERED: DESYREL 50MG50 MG PO (13:10)
[2024-08-05] MEDS ORDERED: CRESTOR40 MG PO (13:10)
[2024-08-05] MEDS ORDERED: MOBIC15 MG PO (13:10)
[2024-08-05] MEDS ORDERED: VITAMIN D31000 IU PO (13:10)
[2024-08-05] MEDS ORDERED: PROAMATINE 5MG T5 MG PO (13:12)
--- NOTE | 2024-08-05 13:25 | NUR ---
PT ON FLOOR VIA STRETCHER FROM ED, AMBUALTED TO ICU BED INDEPENDENTLY. PT PLACED ON AIRVO BY RT, 25L AND 50%. INSPIRATORY AND EXPIRATORY WHEEZING NOTED DURING ASSESSMENT. PT REPORTS SHORTNESS OF BREATH. PT DENIES PAIN. INT TO LEFT HAND PATENT. PT DENIES NEEDS. BED IN LOWEST POSITION, CALL LIGHT IN REACH
[2024-08-05] MEDS ORDERED: VITAMIN D250 MCG PO (14:06)
[2024-08-05] MEDS ORDERED: ALBUTEROL1.25 MG/3 IH (14:07)
[2024-08-05] MEDS ORDERED: EPIPEN 2-PAK1 MG/ML IM (14:08)
[2024-08-05] MEDS ORDERED: XALATAN EYE DROPS OU (14:08)
[2024-08-05] MEDS ORDERED: ASPIRIN 81M81 MG/TA2 PO (14:09)
[2024-08-05] MEDS ORDERED: Doxycycline Hyclate 100 MG in NS 150 ML IV SCH (14:30)
[2024-08-05] MEDS ORDERED: cefTRIAXone 1 G in Water For Injection,Sterile 10 ML IV SCH (14:30)
[2024-08-05] MEDS ORDERED: dexAMETHasone 10 MG/ML VIAL IV SCH (14:30)
[2024-08-05] MEDS ORDERED: Albuterol/Ipratropium 3 MG-0.5 MG/3 ML Neb Soln IH PRN (14:30)
[2024-08-05] MEDS ORDERED: Albuterol 0.042% Neb Soln 1.25 MG/3 ML UD IH SCH (15:00)
--- NOTE | 2024-08-05 15:01 | NUR ---
SW met with patient to complete initial assessment for discharge planning. Patient's niece present in room which patient consented to her remaining. Patient verified that she lives in [place] with her two children ages 14 and 5 years old[address] She sees Dr. Briana Vazquez as her PCP and uses [facility] in [place]. Patient lists her father Tan ([phone]) as her call or contact centre manager who lives in [place]. Patient's father will care for her children while patient is hosptialized. Patient states she has a loop recorder and uses a nebulizer for DME. Patient states she is covered by Medicaid and has applied for disability but has not been approved. Patient states she does not drive due to having seizure disorder. Patient denied having a DPOA but was agreeable to completing one at this time. She named her father Tan Steele as DPOA and her niece Radha Steele ([phone]) as alternate. Original and copies provided to patient and copy placed on chart. Patient will return home at discharge with family to drive her. Discharge plan: Home
[2024-08-05] MEDS ORDERED: Potassium Bicarbonate/Citrate 20 MEQ Effervescent TAB PO SCH (17:00)
--- NOTE | 2024-08-05 18:01 | NUR ---
PT LAYING IN BED UPON ENTERING. PT AMBULATING TO BATHROOM WITH THIS NURSE, DYSPNEA ON EXTERTION NOTED. PT BACK TO BED, O2 SATS WITHIN NORMAL LIMITS. PT ON AIRVO 25L, 50%. PT DENIES NEEDS. BED IN LOWEST POSITION, CALL LIGHT IN REACH.
--- NOTE | 2024-08-05 19:15 | NUR ---
Received reort from JANETH Moreno. Pt is resting in bed with Airvo on at this time. Vitals are stable at this time. Bed is in low position and the call light is within reach. Pt not on any drips and IVF's at this time. Will continue with pt care.
[2024-08-05] MEDS ORDERED: Cholecalciferol (Vit D3) 25 MCG (1,000 Units) TAB PO SCH (21:00)
[2024-08-05] MEDS ORDERED: Atorvastatin 80 MG TAB PO SCH (21:00)
[2024-08-05] MEDS ORDERED: traZODone 100 MG TAB PO SCH (21:00)
[2024-08-06] VITALS (409 sets, daily range): BP systolic 97–130; BP diastolic 51–79; PULSE 49–82; TEMP 97.7–98.4; O2SAT 87–100
[2024-08-06 05:58] LABS: HEMATOCRIT 38.3 % (37.0-47.0); HEMOGLOBIN 12.9 g/dl (12.5-16.0); MEAN CELL VOLUME 93 fl (80.0-100.0); MEAN CORPUSCULAR HEMOGLOBIN 31 pg (27-31); MEAN CORPUSCULAR HGB CONC 34 g/dl (33.0-37.0); MEAN PLATELET VOLUME 9.8 fl (7.4-10.4); PLATELET COUNT 329 K/mm3 (130-400); RED BLOOD COUNT 4.11 M/mm3 (4.10-5.30); REDCELL DISTRIBUTION WIDTH-CV 12.8 % (11.5-14.5)
[2024-08-06 06:13] LABS: ALBUMIN 3.3 g/dL (3.5-5.0); CALCIUM 8.9 mg/dL (8.4-10.2); CREATININE, serum 0.82 mg/dL (0.57-1.11); MAGNESIUM 2.2 mg/dL (1.6-2.6)
[2024-08-06 06:23] LABS: BAND 6 % (0-10); EOSINOPHIL 1 % (0-4); LYMPHOCYTE 11 % (20.0-51.0); METAMYELOCYTE 2 % (0-0); NEUTROPHILS 75 % (42.0-75.2)
[2024-08-06 06:24] LABS: PLATELET ESTIMATE NORMAL (NORMAL)
--- NOTE | 2024-08-06 06:30 | NUR ---
Pt had an uneventful night. Vitals were stable throughout the night. Pt on airvo at this time. No IVF's and drips running at this time. Pt resting in bed with call light within reach. Will give report to day shift nurse.
--- NOTE | 2024-08-06 07:50 | NUR ---
Patient awake and resting in bed; alert and oriented X 4. Denies any concerns at this time. Switched from AIRvo to NC by RT this am. Patient reports tolerating well; 02 WNL. Patient reports feeling improvement with her breathing and can now take deeper breaths, although expiratory wheezes are still audible. Patient currenlty eating breakfast. Call light left within reach.
[2024-08-06] MEDS ORDERED: Influenza Virus Vaccine, Trivalent '24-25 0.5 ML SYRINGE IM SCH (09:00)
[2024-08-06] MEDS ORDERED: Escitalopram 10 MG TAB PO SCH (09:00)
[2024-08-06 09:49] LABS: ALBUMIN 3.4 g/dL (3.5-5.0); BILIRUBIN,DIRECT 0.1 mg/dL (0.0-0.5); BILIRUBIN,TOTAL 0.2 mg/dL (0.2-1.2); TOTAL PROTEIN 6.6 g/dl (6.2-8.1)
[2024-08-06] MEDS ORDERED: Topiramate 100 MG TAB PO SCH (12:04)
[2024-08-06] MEDS ORDERED: Acetaminophen 325 MG TAB PO PRN ×2 (15:30)
[2024-08-06] MEDS ORDERED: predniSONE 20 MG TAB PO SCH (17:00)
--- NOTE | 2024-08-06 18:15 | NUR ---
Transfered to medical floor via wheelchair. Alert and oriented and in no distress. Met receiving RN in room. Call light left within reach.
--- NOTE | 2024-08-06 18:54 | NUR ---
PT TO ROOM 356 PER WHEEL CHAIR WITH REPORT FROM [facility] ICU. PT IS A/O X4 INDEPENDENT IN ROOM. DENIES NEEDS OR PAIN AT THIS TIME.
[2024-08-06] MEDS ORDERED: Budesonide Neb Susp 0.5 MG/2 ML AMP IH SCH (19:00)
[2024-08-06] MEDS ORDERED: Latanoprost 0.005% Ophth Soln 2.5 ML BOTTLE OP SCH (21:00)
[2024-08-07] VITALS: BP 120/73; PULSE 67; TEMP 97.6
[2024-08-07 01:18] VITALS: BP 104/61; PULSE 70; TEMP 97.9
--- NOTE | 2024-08-07 01:22 | NUR ---
PT SITTING UP IN BED EATING. DENIES RESPIRATORY DISTRESS AT THIS TIME.
[2024-08-07 04:06] VITALS: BP 126/80; PULSE 92; TEMP 97.7
[2024-08-07 06:40] LABS: HEMATOCRIT 40.7 % (37.0-47.0); HEMOGLOBIN 13.8 g/dl (12.5-16.0); MEAN CELL VOLUME 94 fl (80.0-100.0); MEAN CORPUSCULAR HEMOGLOBIN 32 pg (27-31); MEAN CORPUSCULAR HGB CONC 34 g/dl (33.0-37.0); PLATELET COUNT 355 K/mm3 (130-400); RED BLOOD COUNT 4.35 M/mm3 (4.10-5.30); REDCELL DISTRIBUTION WIDTH-CV 12.7 % (11.5-14.5)
[2024-08-07 07:09] LABS: ALBUMIN 3.4 g/dL (3.5-5.0); CALCIUM 9.3 mg/dL (8.4-10.2); CREATININE, serum 0.8 mg/dL (0.57-1.11); MAGNESIUM 2.1 mg/dL (1.6-2.6); PHOSPHOROUS 3.8 mg/dL (2.3-4.7); POTASSIUM 4.2 mEq/L (3.5-4.5)
[2024-08-07 07:28] LABS: BAND 7 % (0-10); LYMPHOCYTE 18 % (20.0-51.0); METAMYELOCYTE 1 % (0-0); NEUTROPHILS 70 % (42.0-75.2)
[2024-08-07 07:29] LABS: PLATELET ESTIMATE NORMAL (NORMAL)
[2024-08-07 07:42] VITALS: BP 117/73; PULSE 71; TEMP 98.3
--- NOTE | 2024-08-07 08:45 | NUR ---
Assessment complete. Resting in bed upon entry to room. Pt reports SOA at rest and with any exertion. On RA. Plan for discharge today.
[2024-08-07] MEDS ORDERED: Fenofibrate 54 MG TABLET PO SCH (09:00)
[2024-08-07] MEDS ORDERED: PREDNISONE20 MG PO (09:29)
[2024-08-07] MEDS ORDERED: RT ADVAIR 528 DISKUS IH (09:29)
[2024-08-07] MEDS ORDERED: ZYRTEC 10MG10 MG PO (09:31)
[2024-08-07] MEDS ORDERED: FLONASEALLERGY NS (09:32)
[2024-08-07] MEDS ORDERED: SINGULAIR 110 MG/TAB PO (09:32)
--- NOTE | 2024-08-07 10:11 | NUR ---
stock worker and deliverer attended clinical rounding and pt will discharge. She does not need oxygen per RT oximetry. Discharge Plan: home
--- NOTE | 2024-08-07 12:47 | NUR ---
Discharge instructions reviewed with patient- verbalizes understanding. INT to d/c'd with cath tip intact. Pt escorted to private vehicle via w/c and discharged home with family.
== END 2024-08-07 12:50 | disposition home or self-care (01) | DRG 189 ==
LOC: COL.ER 08:32 → ICU 11:01 → MEDICAL 08-06 18:09
PROVIDERS: Family Medicine; ADMIT Internal Medicine
DX: J96.01 Acute respiratory failure with hypoxia (principal); J45.901 Unspecified asthma with (acute) exacerbation; G40.909 Epilepsy, unspecified, not intractable, without status epilepticus; F41.9 Anxiety disorder, unspecified; E78.1 Pure hyperglyceridemia; E78.00 Pure hypercholesterolemia, unspecified; K76.0 Fatty (change of) liver, not elsewhere classified; Z20.822 Contact with and (suspected) exposure to COVID-19; H40.9 Unspecified glaucoma; F17.210 Nicotine dependence, cigarettes, uncomplicated; Z90.49 Acquired absence of other specified parts of digestive tract; Z95.818 Presence of other cardiac implants and grafts; Z90.710 Acquired absence of both cervix and uterus; Z88.6 Allergy status to analgesic agent; Z88.1 Allergy status to other antibiotic agents; Z88.8 Allergy status to other drugs, medicaments and biological substances; Z79.899 Other long term (current) drug therapy; Z79.82 Long term (current) use of aspirin; Z91.030 Bee allergy status
CPT/HCPCS: J0696; J1100; J2405; J2919; J3475; J7512